=== PATIENT | female | born 1980 | race Caucasian/White ===

== ENCOUNTER → 2020-07-28 09:35 | Outpatient (CLI) | payer OTHER, SELFPAY ==
[2020-07-28 11:52] LABS: Hematocrit 34.6 % (36-46); Hemoglobin 11.8 g/dL (12.0-16.0)
[2020-07-28 11:53] LABS: GTT (PREG) 1 Hour PP 50gm Dose 137 mg/dL (76-139)
== END ==
PROVIDERS: Referring Provider Specialist; Visit Provider Specialist
DX: O26.899 Other specified pregnancy related conditions, unspecified trimester (principal); Z67.91 Unspecified blood type, Rh negative; Z3A.26 26 weeks gestation of pregnancy
CPT/HCPCS: 36415; 82950; 85014; 85018; 86850

== ENCOUNTER → 2020-10-01 10:11 | Outpatient (CLI) | payer OTHER, SELFPAY ==
[2020-10-03 10:07] LABS: Strep Grp B PCR NEG for Grp B Strep
== END ==
PROVIDERS: Visit Provider Specialist
DX: Z34.83 Encounter for supervision of other normal pregnancy, third trimester (principal); Z3A.36 36 weeks gestation of pregnancy
CPT/HCPCS: 87653

== ENCOUNTER 2020-10-27 12:29 | Inpatient (IN) | payer OTHER, SELFPAY ==
--- NOTE | 2020-10-27 13:53 | P.HPOB_ITS ---
OB HPI Date/Time Date of admission: 10/27/20 Date Patient Seen: 10/27/20 Time Patient Seen: 14:00 History of Present Condition Chief complaint: R/O Labor Estimated Date of Delivery: 10/25/20 Estimated Gestational Age (weeks): 40 Narrative: Tracy Morris is a 40 year old @40+2 by early US, presenting after SROM at 2 AM with ongoing leakage of clear fluid. The patient denies vaginal bleeding, reports good movement, has rare contractions, and denies fevers, chills, nausea, vomiting, or any other symptoms. She has had a complicated by AMA and transfer of care, and has a history of term preeclampsia and labor. She denies any other significant medical, surgical, community engagement specialist, or family history, including any history of HSV 1 or 2. Records review indicates discussion of a tubal ligation, but the patient reports that she was unaware of this plan and today says she wants tubal sterilization remote from delivery. Indications Indication for induction OB: other (PROM) History of Present care: good care Ultrasounds: normal mid trimester US Obstetrical complications: none Medical complications: none Preadmission Labs Blood type: 0 (-) negative -: Antibody screen: negative, GBS status: negative, HBsAG: negative, HIV: negative and RPR/VDLR: negative -: Chlamydia screen: not detected and Gonorrhea screen: not detected -: Rubella: immune and Varicella: immune Cell-free DNA: wnl Urine: mixed normal javier 1 hr GTT: 134 Prior (ies) History: G1: 05/29/05, 40 wks, 8#2.4, F, , preeclampsia G2: 12/10/09, 34 weeks, 5#3, F, , labor Evaluation Evaluation Baseline heart rate: 140 Variability: Moderate (11-25) monitor accelerations: Present Monitor Decelerations: Absent Contraction Frequency (minutes): 2 Uterine Contraction Intensity: Mild (almost entirely asymptomatic) Category of Tracing: Reactive Status: Category l Cervical dilation (cm): 2 Non-invasive Membranes Rupture Test: positive COUNTS INCLUDE 234 BEDS AT THE [facility] Medical History AMA (advanced maternal age) multigravida 35+ BMI greater than 30 Chicken pox (~1989) Chlamydia Chronic back pain (~2018) Cubital tunnel syndrome (~2017) Dysfunctional uterine bleeding (~01/2010) External hemorrhoids (~2009) Fasciitis (~2006) Fatigue (~2008) Female cystocele (~2008) Foot pain (~2008) Gestational diabetes H/O premature delivery Hallux valgus (acquired) (~1989) Hemorrhoid 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) Hypertrophic condition of skin (~2005) Left forearm fracture (~2017) Nicotine dependence Ovarian cyst Pain of left hip (~2013) Plantar warts Prolapsed bladder (~2008) Prolapsed uterus (~2008) Smoker (spontaneous vaginal delivery) Verruca (~2014) Surgical History Anesthesia H/O hemorrhoidectomy (~04/2009) S/P dilation and curettage (~2009) [place] teeth extracted (~1997) Family History Mother Epilepsy Intellectual disability Mental health problem Father Family estrangement Medical history unknown Grandmother History of ETOH abuse Sister Lazy eye Learning disability Intellectual disability Mental health problem Family/Other Intellectual disability Grandfather Family estrangement Medical history unknown Grandmother Medical history unknown Family estrangement Grandfather Family estrangement Medical history unknown Brother Mental health problem Social History marital status: number of children: 2 household members: spouse and children lives independently: Yes caregiver/support person: No housing: house pets and animals: No education level: college occupational status: unemployed current occupational exposures/hazards: No Previous occupational history: Retired E[employer] jose/protestant: [employer] special jose needs: No seatbelt use: always working smoke detector in home: Yes fire extinguisher in home: Yes carbon monox detector in home: Yes firearms in home: No do you feel safe at home: Yes Smoking Status: Former smoker Tobacco: How many years used: 12 second hand exposure: Yes (Sometimes smokes near her but outside.) alcohol intake: former substance use type: does not use during the past year weight has: increased > 10 lbs well-balanced diet: daily or most days daily servings fruits/ve-4 caffeine: Yes (1 cup per day, less than 200mg. ) frequency: does not exercise Meds Home Medications and Allergies Home Medications Medication Instructions Recorded Confirmed Type prenat.vits,jennifer,mff-[id number] 1 tab PO DAILY 07/17/20 10/27/20 History omeprazole 40 mg capsule,delayed 40 mg PO DAILY #30 cap 07/25/20 10/27/20 Rx release Allergies Allergy/AdvReac Type Severity Reaction Status Date / Time No Known Drug Allergies Allergy Verified 10/08/20 10:36 Review of Systems Constitutional Constitutional: Reports system reviewed and no additional complaints, except as documented Cardiovascular Cardiovascular: Reports system reviewed and no additional complaints, except as documented Respiratory Respiratory: Reports system reviewed and no additional complaints, except as documented Gastrointestinal Gastrointestinal: Reports system reviewed and no additional complaints, except as documented Genitourinary Genitourinary: Reports as per HPI Neurologic Neurologic: Reports system reviewed and no additional complaints, except as documented Exam Vital Signs (past 8 hours): VSS Const General: cooperative, healthy appearing, comfortable and well groomed Resp Effort & Inspection: normal respiratory effort Auscultation: clear to auscultation bilaterally Cardio Rate: regular rate Rhythm: regular rhythm GI Palpation: soft and No tender External Female Exam: normal external appearance Extrem General: normal to inspection Objective Labs Result Diagrams: 10/27/20 14:30 Assessment and Plan Assessment and Plan Assessment and Plan narrative: This patient is a 40yo @40+2 admitted with ongoing leakage of at times copious clear fluid, with a positive amnisure. She will be observed for signs of labor while an IV is placed and labs drawn. If she does not have increasingly symptomatic contractions, she will be augmented with pitocin per the usual protocol. The patient is GBS negative and no antibiotics are currently indicated. Cervical exams to be minimized, perform as indicated by change in clinical status. - EFW 8# - CBC, T&S, covid testing pending - cEFM, toco - Anticipate
[2020-10-27 14:45] LABS: Add Manual Diff / Slide Review NO; Basophils Absolute Auto 200 /uL (0-100); Basophils Percent Auto 0.7 % (0-2); Eosinophils Absolute Auto 100 /uL (0-450); Eosinophils Percent Auto 0.7 % (2-4); Hematocrit 40.6 % (36-46); Hemoglobin 13.6 g/dL (12.0-16.0); Lymphocytes Absolute Auto 2300 /uL (1100-4500); Lymphocytes Percent Auto 11.3 % (25-40); Mean Corpuscular HGB Conc 33.4 % (30-36); Mean Corpuscular Hemoglobin 30.2 PG (26-34); Mean Corpuscular Volume 90.3 fL (80-100); Monocytes Absolute Auto 700 /uL (0-900); Monocytes Percent Auto 3.5 % (3-14); Neutrophils Absolute Auto 17200 /uL (1500-7000); Neutrophils Percent Auto 83.8 % (50-75); Platelet Count 246 X10^3/uL (150-400); White Blood Cell Count 20.5 X10^3/uL (4.5-11.0)
[2020-10-27 15:41] LABS: COVID19 - ADMIT (NP swab/PCR) Negative (Negative)
[2020-10-27] MEDS: LACTATED RINGERS 1,000 ML 100 ML IV (16:59)
[2020-10-27] MEDS: OXYTOCIN PREMIX 30 UNIT/500 ML PLAST..BAG IV (17:00)
[2020-10-27 17:56] VITALS: BP 128/85
--- NOTE | 2020-10-27 20:42 | PM.OBPNLAB ---
Date/Time Date Patient Seen: 10/27/20 Time Patient Seen: 20:42 Pain Control Pain control: tolerating well Pelvic Exam Dilation (cm): 3 Effacement (%): 75 station: -2 Amniotic membrane status: Leaking (clear fluid) Comments: palpable membranes, but leaking copious clear fluid and head still somewhat ballotable. Contractions Pitocin rate (mU/min): 14 Contraction frequency (min): 2 Contraction intensity: Mild (almost entirely asymptomatic) Status status: Category l Heart Rate Baseline: 130 Monitor Accelerations: Present Monitor Decelerations: Absent Monitor Variability: Moderate Assessment and Plan Assessment: induction ongoing Plan: continuous present management Comments: Continue pitocin per protocol. For PCN per protocol starting at 24 hours of rupture. Epidural if desired. Isolated 148/72, continue to closely monitor vitals. Denies PIH symptoms.
[2020-10-28] MEDS: CEFAZOLIN 1 GM VIAL 2 GM IV ×3 (02:43→18:20)
[2020-10-28] MEDS: LACTATED RINGERS 1,000 ML 100 ML IV (09:32)
--- NOTE | 2020-10-28 13:26 | PM.OBPNLAB ---
Date/Time Date Patient Seen: 10/28/20 Time Patient Seen: 13:26 Pain Control Pain control: tolerating well Pelvic Exam Dilation (cm): 5 Effacement (%): 75 station: -1 Amniotic membrane status: Leaking (clear fluid) Contractions Contractions on admission: regular Monitor mode: External Contraction frequency (min): 2 Contraction duration (min): 1 Contraction pattern: Regular Contraction intensity: Moderate (almost entirely asymptomatic) Status status: Category l Heart Rate Baseline: 130 Monitor Accelerations: Present Monitor Decelerations: Absent Monitor Variability: Moderate Assessment and Plan Assessment: induction ongoing Comments: Patient making slow progress on Pitocin with continued leakage of fluid, no evidence of chorioamnionitis. Continue q.8 Ancef.
[2020-10-28] MEDS: fentaNYL 100 MCG/2 ML INJ 50 MCG IV ×2 (14:56→15:59)
[2020-10-28] MEDS: miSOPROStoL 200 MCG TABLET 800 MCG PR (19:50)
[2020-10-28] MEDS: OXYTOCIN 10 UNIT/ML VIAL IM (20:03)
--- NOTE | 2020-10-28 20:30 | PM.OBPRVD ---
Events: Prolonged Rupture Membrane Labor & Delivery Delivery date: 10/28/20 Intrapartal Events: Prolonged Latent Phase Induction method: per pitocin protocol Delivery monitor: external FHT and external uterine Route of delivery: L&D Laceration Description: None Estimated blood loss (mL): 2,100 Anesthesia Type: Epidural Complications: Retained placenta with hemorrhage Narrative: Patient had spontaneous rupture membranes at 2:00 a.m. on 10/27. She arrived on Labor and delivery in the afternoon of 526 with no spontaneous onset of labor. She was started on Pitocin. She had no significant onset of contractions. Pitocin was stopped for an hour and a half and then restarted at 9:30 a.m. on 10/28 pm. Patient had slow onset of labor. She was started on Ancef 2 g q.8 hours for prolonged rupture membranes. Patient eventually received an epidural catheter for pain control. heart tones category 1 to category 2 throughout labor. The patient progressed to complete and pushing and delivered spontaneously over an intact perineum a viable female infant that was placed immediately on maternal abdomen. After cord stopped pulsating the cord was clamped, cut, and cord bloods obtained. The placenta had not delivered by 30 minutes after delivery of the baby. Patient was very comfortable and the operating room was busy so a manual removal of placenta was undertaken. Patient had lost over 1500 cc of blood by that time. Because she continued to bleed a uterine curettage was performed. She received IV and IM Pitocin. She received rectal Cytotec. Bleeding was eventually controlled. There were no cervical, vaginal, or perineal tears. Patient will be monitored closely for continued bleeding and signs of infection. She and the baby are doing well. Baby 1: Infant gender: Female Presentation: vertex Position: Right Occiput Anterior Placenta delivery description: Manual Removal and Curettage Cord Vessel Description: 3 Vessels and Nuchal Cord score (1 min): 8 score (5 min): 9 Plan for aftercare: Routine care and Other (Monitor for bleeding and/or infection)
[2020-10-28 20:56] LABS: Hematocrit 32.1 % (36-46); Hemoglobin 10.9 g/dL (12.0-16.0)
[2020-10-28] MEDS: ONDANSETRON 4 MG/2 ML INJ IV (21:54)
[2020-10-29] MEDS: IBUPROFEN 600 MG TABLET PO ×3 (02:43→14:18)
[2020-10-29] MEDS: HYDROCODONE/ACET 5/325 TABLET 2 TAB PO (02:45)
[2020-10-29] MEDS: CEFAZOLIN 1 GM VIAL 2 GM IV (02:45)
[2020-10-29 07:07] LABS: Add Manual Diff / Slide Review NO; Basophils Absolute Auto 100 /uL (0-100); Basophils Percent Auto 0.3 % (0-2); Eosinophils Absolute Auto 100 /uL (0-450); Eosinophils Percent Auto 0.5 % (2-4); Hemoglobin 8.5 g/dL (12.0-16.0); Lymphocytes Absolute Auto 2600 /uL (1100-4500); Lymphocytes Percent Auto 14.5 % (25-40); Mean Corpuscular HGB Conc 34.1 % (30-36); Mean Corpuscular Hemoglobin 30.8 PG (26-34); Mean Corpuscular Volume 90.5 fL (80-100); Monocytes Absolute Auto 900 /uL (0-900); Monocytes Percent Auto 5.1 % (3-14); Neutrophils Absolute Auto 14300 /uL (1500-7000); Neutrophils Percent Auto 79.6 % (50-75); Platelet Count 183 X10^3/uL (150-400); Red Blood Cell Count 2.76 X10^6/uL (4.0-5.2); Red Cell Distribution Width 13.9 % (11.6-14.8)
--- NOTE | 2020-10-29 07:31 | P.DS_ITS ---
Discharge Providers Provider Date of admission: 10/27/20 12:29 Discharge Date: 10/29/20 Primary care physician: Doctor Noelle MD Consults: 10/29/20 20:24 Consult to Human Resources Executive Assistant Routine Comment: Discharge provider: Kathie Clayton MD Summary Hospital Course Date Patient Seen: 10/29/20 Time Patient Seen: 07:32 Diagnoses: 39 week gestation with prolonged rupture membranes, spontaneous vaginal delivery, retained placenta with hemorrhage Hospital Course: Patient arrived on Labor and delivery with spontaneous rupture membranes not in active labor. She was begun on Pitocin. She had a spontaneous vaginal delivery of a viable female weighing 7 lb 3 oz. she had retained placenta that required manual removal and uterine curettage. Estimated blood last 2200 cc. Patient is doing well. No signs or symptoms of infection. She is urinating and ambulating well. Pain is limited to cramping. Peripartum Data Infant Delivery Method: Natural Vaginal Laceration Description: None Procedures: IV Pitocin, IV antibiotics, epidural catheter, spontaneous vaginal delivery, manual removal of placenta, uterine curettage. complications: retained placenta 1: Gender: Female Disposition of : home Discharge Diagnosis (1) Vaginal delivery: Status: Acute (2) Retained placenta with hemorrhage: Status: Acute (3) PROM with onset of labor more than 24 hours following rupture: Status: Acute Status at Discharge Cognitive/behavioral status at discharge: oriented Functional status at discharge: independent ambulation Overall status at discharge: patient is progressing back to baseline Time Spent with Patient Time attestation: Total time spent providing and/or coordinating discharge services: Time spent: Less than 30 minutes Objective Labs Result Diagrams: 10/29/20 06:42 Labs: Laboratory Results - last 24 hr 10/28/20 10/29/20 20:45 06:42 WBC 18.0 H RBC 2.76 L Hgb 10.9 L 8.5 L Hct 32.1 L 25.0 L MCV 90.5 MCH 30.8 MCHC 34.1 RDW 13.9 Plt Count 183 Neut % (Auto) 79.6 H Lymph % (Auto) 14.5 L [place] % (Auto) 5.1 Eos % (Auto) 0.5 L Baso % (Auto) 0.3 Neut # (Auto) 52984 H Lymph # (Auto) 2600 [place] # (Auto) 900 Eos # (Auto) 100 Baso # (Auto) 100 Exam Vital Signs (past 8 hours): Blood pressure 122/67, pulse 123, temperature 97.8? Narrative Exam Narrative: Abdomen is soft , nontender. Uterus is at U with mild tenderness. mild lochia. Extremities without edema and nontender. Patient is O negative and baby is Rh positive so she will receive RhoGAM prior to discharge. She is rubella immune. She received Tdap in the 3rd trimester. Discharge Plan Discharge Plan Patient Disposition: Home Discharge orders & Medications Prescriptions: New hydrocodone-acetaminophen 5-325 mg Tablet 2 tab PO Q4HR PRN (Reason: Pain, Severe (7-10)) Qty: 20 RF: 0 ibuprofen 600 mg Tablet 600 mg PO Q6HR PRN (Reason: Pain, Mild (1-3)) Qty: 20 RF: 0 Continued omeprazole 40 mg capsule,delayed release(DR/EC) 40 mg PO DAILY Qty: 30 RF: 2 prenat.vits,jennifer,xyn-prab-hlysj Tablet 1 tab PO DAILY RF: 0 Follow up/Referrals: Kathie Claytno MD [Physician] - 1 Month Doctor Drake MD [Primary Care Provider] - Diet/Activity/Treatments Diet: Regular Activity: Nothing in vagina for 4 weeks Skin/Wound/Dressing Care Report to your healthcare provider any signs of infection, such as:: chills, fever and increased pain Discharge Data Primary Care Provider: Doctor Noelle
[2020-10-29] MEDS: ACETAMINOPHEN 325 MG TABLET 650 MG PO ×2 (08:27→14:17)
[2020-10-29 09:28] VITALS: BP 130/74; PULSE 104; RESP 18; TEMP 36.7
[2020-10-29] MEDS: RHO(D) IMMUNE GLOBULIN 1,500 UNIT SYRINGE 1500 UNIT IM (10:57)
--- NOTE | 2020-10-31 06:46 | PM.AN.REGBLK ---
Regional Block Pre-procedure Procedure: Continuous Lumbar Epidural for L&D Attending OB provider: Shakila Monreal PMH/ROS narrative: Patient in early labor desiring epidural. Exam narrative: MP2, RRR, CTAB ASA Class: II Labs: Hct 25.0 % (36-46) L 10/29/20 06:42 Plt Count 183 X10^3/uL (150-400) 10/29/20 06:42 Allergies: Allergies Allergy/AdvReac Type Severity Reaction Status Date / Time No Known Drug Allergies Allergy Verified 10/08/20 10:36 Procedure Insertion date: 10/27/20 Prep/Local: betadine x3 (chloroprep) and 1% lidocaine Interspace: L3-4 Needle: 18 gauge Hustead Infusion Subsequent interventions: Patient positioned with monitors and IV, prepped, draped and timeout performed. Skin anesthetized with local over the L3-4 interspace. 2 minutes into the procedure, prior to loss of resistance being obtained, patient requests cessation and expresses desire to continue with labor without an epidural. Needle withdrawn. No acute complications. Post-procedure Anesthesia time START: 21:34 Anesthesia time END: 21:51 Post-procedure Anesthesia Assessment: No Anesthesia complications
== END 2020-10-29 14:30 | disposition home or self-care (01) | DRG 768 ==
PROVIDERS: Obstetrics & Gynecology; Admitting Provider Specialist; Referring Provider Specialist; Visit Provider Specialist
DX: O42.02 Full-term premature rupture of membranes, onset of labor within 24 hours of rupture (principal); Z37.0 Single live birth; O72.0 Third-stage hemorrhage; Z3A.40 40 weeks gestation of pregnancy; O63.0 Prolonged first stage (of labor); Z20.822 Contact with and (suspected) exposure to COVID-19; O69.81X0 Labor and delivery complicated by cord around neck, without compression, not applicable or unspecified
CPT/HCPCS: 01967; 36415; 59050; 59410; 84112; 85014; 85018; 85025; 85461; 86850; 86900; 86901; 87635; C9803; G0379; J0690; J2405; J2590; J2790; J3010; S0191

== ENCOUNTER → 2023-10-16 09:15 | Outpatient (CLI) | payer OTHER, SELFPAY ==
--- NOTE | 2023-10-16 09:17 | DI.MRI.S_ITS ---
PROCEDURE: MR KNEE RT WO CON INDICATIONS: RIGHT KNEE PAIN TECHNIQUE: Noncontrast sagittal PD fast spin echo and T2 fast spin echo with fat saturation, sagittal 3-D FLASH with fat saturation; coronal T1 spin echo and PD fast spin echo with fat saturation, and axial PD fast spin echo with fat saturation through the knee. COMPARISON: None. FINDINGS: Image quality: Excellent. Anterior cruciate ligament: Intact. Posterior cruciate ligament: Intact. Medial collateral ligament: Intact. Lateral collateral ligament: Intact. Medial meniscus: Horizontal oblique tearing of the body of the medial meniscus extending to the inner third of the tibial articular surface. There is mild extrusion of the meniscal body beyond the femorotibial joint line. Lateral meniscus: Intact. Medial and lateral tendons: The semimembranosus tendon insertions appear intact. Visualized portions of the pes anserinus tendons appear normal. The popliteus tendon is intact. Iliotibial band appears normal. Anterior structures: The quadriceps and patellar tendons appear intact. No patellar subluxation. No femoral trochlear dysplasia or ventral trochlear prominence. No edema in the infrapatellar fat pad. Bones and cartilage: No bone marrow contusions or fractures. Medial femorotibial cartilage: Moderate partial-thickness cartilage irregularity in the weight-bearing portion of medial femorotibial compartment with small marginal osteophytes. Lateral femorotibial cartilage: No focal cartilage defect. Patellofemoral cartilage: Cartilage fissuring is seen in the trochlear groove. Soft tissues: There is a small joint effusion. Small medial popliteal cyst. The musculature surrounding the knee is normal in bulk. IMPRESSION: 1. Horizontal oblique tearing of the body of the medial meniscus extending to the tibial articular surface. Mild extrusion of the meniscal body beyond the femorotibial joint line. 2. 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 Mild deep cartilage fissuring in the trochlear groove. 3. Cruciate and collateral ligaments are intact. No acute trabecular bone injury. 4. Small joint effusion. Small medial popliteal cyst. Approved by: Dilshad Gant M.D. on 10/17/2023 at 15:43
== END ==
LOC: MRI 09:17
PROVIDERS: Referring Provider Registered Nurse; Visit Provider Registered Nurse
DX: S83.241A Other tear of medial meniscus, current injury, right knee, initial encounter (principal); M94.261 Chondromalacia, right knee; M25.561 Pain in right knee; M25.461 Effusion, right knee; M71.21 Synovial cyst of popliteal space [Baker], right knee
CPT/HCPCS: 73721